=== PATIENT | male | born 1990 | race Caucasian/White ===

== ENCOUNTER 2024-09-27 12:57 | Outpatient (REF) | payer BC, SELFPAY | END 2024-09-27 12:58 | disposition home or self-care (01) | LOC: HO.BBR 12:57 | PROVIDERS: Visit Provider Physician Assistant | DX: D75.1 Secondary polycythemia (principal) | CPT/HCPCS: 85018; 99195 ==

== ENCOUNTER 2024-12-19 15:27 | Outpatient (REF) | payer BC, SELFPAY ==
--- OUTSIDE RECORDS SUMMARY | 2024-12-19 16:19 | XMS_ITS | Patient Health Record ---
Author Organization [facility] Address [address] [place] [address] Care Team Providers Care Financial Systems Director Name Role Phone SHOAIB PAINTER Primary Care Provider [phone] SHOAIB PAINTER Unavailable [phone] Allergies Allergen (clinical drug ingredient) Drug/Non Drug Allergy documented on EMR Reaction Allergy Type Onset Date Status amoxicillin Amox (uncoded) Unknown Allergy Act kumar Bees (uncoded) Unknown Allergy Activ e Reason For Referral No Information Medications Medication SIG (Take, Route, Frequency, Duration) Notes Start Date End Date Status Escitalopram Oxalate 10 MG 1 tablet Orally Once a day for 90 days Not-Taking Immunizations Vaccine Route Administration Date Status Comme nts Influenza (split), 3 yrs and above Unknown 09/01/2020 A dministered Social History Tobacco Use: Social History Observation Description Date Details (start date - stop date) Never Smoker NA - NA Tobacco Use/Smoking Question Answer Notes Are you a nonsmoker Additional Findings: Tobacco Non-User Current no n-smoker Alcohol Screen (Audit-C) Question Answer Notes Did you have a drink contain ing alcohol in the past year? Yes How often did you have a dri nk containing alcohol in the past year? 2 to 4 times a month (2 points) How many drinks did you have on a typical day when you were drinking in the past year? 3 or 4 drinks (1 point) How often did you have 6 or more drinks on one occasion in the past year? Less than monthly (1 point) Points 4 Interpretation Positive Section Notes: not a smoker etoh: weekends if socializing. Does not drink more than 6 drinks in a night. Problems Problem Type SNOMED Code ICD Code Onset Dates Problem Status W/U Status Risk Notes Problem [id number] Situational anxiety (F41.8) Active confirmed Plan Of Treatment No Information Insurance Providers Payer Name Payer Address Payer Phone Subscriber Number Group Number Insured Name Patient Relationship to Insured Coverage Start Date Coverage End Date [facility] [address] [place] [address] [id number] Joe Wesley Self - patient is the insured Medical (General) History Medical History History ICD Code bilateral broken calaneous age 15, Covid 19 Spring 2021 Surgical History Surgery Date(Month/Year) wisdom tooth extraction
== END 2024-12-19 15:28 | disposition home or self-care (01) ==
LOC: HO.BBR 15:27
PROVIDERS: Visit Provider Physician Assistant
DX: D75.1 Secondary polycythemia (principal); Z98.890 Other specified postprocedural states
CPT/HCPCS: 85014; 85018; 99195

== ENCOUNTER 2025-01-01 15:21 | Outpatient (REF) | payer BC, SELFPAY ==
--- OUTSIDE RECORDS SUMMARY | 2025-01-01 18:14 | XMS_ITS | Patient Health Record ---
Author Organization [facility] Address [address] [place] [address] Care Team Providers Care Vascular Neurologist Name Role Phone SHOAIB PAINTER Primary Care Provider SHOAIB PAINTER Unavailable [phone] Allergies Allergen (clinical drug ingredient) Drug/Non Drug [...] Problem Status W/U Status Risk Notes Problem [id number] Situational anxiety (F41.8) Active confirmed Plan Of Treatment No Information Insurance Providers Payer Name Payer Address Payer Phone Subscriber Number Group Number Insured Name Patient Relationship to Insured Coverage Start Date Coverage End Date [facility] [address] [place] [address] [id number] Joe Wesley Self - patient is the insured Medical (General) History Medical History History ICD Code bilateral broken calaneous age 15, Covid 19 Spring 2021 Surgical History Surgery Date(Month/Year) wisdom tooth extraction
== END 2025-01-01 15:22 | disposition home or self-care (01) ==
LOC: HO.BBR 15:21
PROVIDERS: Visit Provider Physician Assistant
DX: D75.1 Secondary polycythemia (principal)
CPT/HCPCS: 85018; 99195